=== PATIENT | male | born 1960 | race Caucasian/White ===

== ENCOUNTER → 2018-07-15 | Outpatient (CLI) | payer OTHER ==
[~2018-07-15] MED LIST: GADOBUTROL 10 ML VIAL IVP ONE
== END ==
LOC: FIMAGING 13:43
PROVIDERS: ATTEND Family Medicine
DX: G50.0 Trigeminal neuralgia (principal); R51 Headache; R53.83 Other fatigue
CPT/HCPCS: A9585